=== PATIENT | female | born 1985 | race Caucasian/White ===

== ENCOUNTER 2017-02-14 18:52 | Emergency (ER) | payer SELFPAY ==
[2009-12-08 11:20] VITALS: BMI 26.5
[2017-02-14 20:03] LABS: BASOPHILS 0.3 % (0-2); EOSINOPHILS 1.3 % (0-7); HEMATOCRIT 39.1 % (36.0-48.0); HEMOGLOBIN 13.1 g/dL (12-16); IMMATURE GRANULOCYTES 0.3 % (0-5); LYMPHOCYTES 22.9 % (15-50); MCH 30.9 pg (26.0-34.0); MCHC 33.5 g/dL (31.0-37.0); MCV 92.2 fL (80.0-100.0); MEAN PLATELET VOLUME 9.9 fL (7.4-10.4); MONOCYTES 7.4 % (2-11); NEUTROPHILS 67.8 % (40-80); PLATELET COUNT 276 10x3/uL (130-400); RBC 4.24 10x6/uL (4.00-5.40); WBC 15.1 10x3/uL (4.8-10.8)
[2017-02-14 20:13] LABS: APPEARANCE CLOUDY (CLEAR); BILIRUBIN NEGATIVE (NEGATIVE); COLOR YELLOW (YELLOW); GLUCOSE NEGATIVE (NEGATIVE); KETONE NEGATIVE (NEGATIVE); LEUKOCYTE ESTERASE 1+ (NEGATIVE); NITRITE NEGATIVE (NEGATIVE); PROTEIN NEGATIVE (NEGATIVE); SPECIFIC GRAVITY 1.025 (1.005-1.020); UROBILINOGEN NORMAL (NORMAL)
[2017-02-14 20:16] LABS: BACTERIA FEW /hpf (NONE SEEN); RED CELLS - URINE 0-5 /hpf (0-5); WHITE CELLS - URINE 0-5 /hpf (0-5)
[2017-02-14 20:58] LABS: ALBUMIN 3.8 g/dL (3.4-5.0); ALKALINE PHOSPHATASE 73 U/L (46-116); ALT (SGPT) 13 U/L (10-68); BILIRUBIN - TOTAL 0.18 mg/dL (0.2-1.3); CALC OSMOLALITY 277 mosm/kg (275-300); CHLORIDE - SERUM 105 mmol/L (98-107); CREATININE - SERUM 0.7 mg/dL (0.6-1.3); GLUCOSE 92 mg/dL (74-106); POTASSIUM - SERUM 3.5 mmol/L (3.5-5.1); SODIUM 140 mmol/L (136-145); UREA NITROGEN 11 mg/dL (7-18); eGFR NON AFRICAN AMERICAN > 90 mL/min (90-120)
[2017-02-14 21:22] LABS: HCG SERUM POSITIVE (NEGATIVE)
== END 2017-02-14 22:06 | disposition home or self-care (01) ==
LOC: D.ER 18:52
PROVIDERS: Emergency Medicine
DX: M54.5 Low back pain (principal); F17.200 Nicotine dependence, unspecified, uncomplicated

== ENCOUNTER 2017-05-29 12:21 | Emergency (ER) | payer MEDICAID ==
[2009-12-08 11:20] VITALS: BMI 26.5
[2017-05-29 14:50] LABS: APPEARANCE CLEAR (CLEAR); BILIRUBIN NEGATIVE (NEGATIVE); COLOR YELLOW (YELLOW); GLUCOSE NEGATIVE (NEGATIVE); KETONE NEGATIVE (NEGATIVE); NITRITE NEGATIVE (NEGATIVE); PROTEIN NEGATIVE (NEGATIVE); SPECIFIC GRAVITY 1.015 (1.005-1.020); UROBILINOGEN NORMAL (NORMAL)
[2017-05-29 14:59] LABS: BASOPHILS 0.2 % (0-2); EOSINOPHILS 1.1 % (0-7); HEMATOCRIT 35.9 % (36.0-48.0); HEMOGLOBIN 12.1 g/dL (12-16); IMMATURE GRANULOCYTES 0.4 % (0-5); LYMPHOCYTES 17.2 % (15-50); MCH 30.9 pg (26.0-34.0); MCHC 33.7 g/dL (31.0-37.0); MCV 91.6 fL (80.0-100.0); MONOCYTES 6.6 % (2-11); NEUTROPHILS 74.5 % (40-80); PLATELET COUNT 237 10x3/uL (130-400); RBC 3.92 10x6/uL (4.00-5.40); RDW 12.8 % (11.5-14.5); WBC 12.3 10x3/uL (4.8-10.8)
[2017-05-29 15:03] LABS: HCG SERUM POSITIVE (NEGATIVE)
[2017-05-29 15:13] LABS: ALBUMIN 3.1 g/dL (3.4-5.0); ALKALINE PHOSPHATASE 67 U/L (46-116); ALT (SGPT) 13 U/L (10-68); BILIRUBIN - TOTAL 0.12 mg/dL (0.2-1.3); CALC OSMOLALITY 268 mosm/kg (275-300); CALCIUM 8.8 mg/dL (8.5-10.1); CARBON DIOXIDE 27.2 mmol/L (21.0-32.0); CHLORIDE - SERUM 102 mmol/L (98-107); CREATININE - SERUM 0.3 mg/dL (0.6-1.3); GLUCOSE 99 mg/dL (74-106); POTASSIUM - SERUM 3.5 mmol/L (3.5-5.1); PROTEIN - SERUM 7.1 g/dL (6.4-8.2); SODIUM 136 mmol/L (136-145); UREA NITROGEN 5 mg/dL (7-18); eGFR NON AFRICAN AMERICAN > 90 mL/min (90-120)
[2017-05-29 15:38] LABS: AMYLASE - SERUM 35 U/L (25-115); HCG - QUANTITATIVE (MATERNAL) 10737 mIU/mL; LIPASE 124 U/L (73-393)
[2017-08-09] MEDS ORDERED: PRENATAL COMPLE1 TAB PO (22:33)
[2017-08-09] MEDS ORDERED: ACETAMINOPHEN500 M1 (22:35)
== END 2017-05-29 16:32 | disposition home or self-care (01) ==
LOC: D.ER 12:21
PROVIDERS: Family Medicine
DX: O26.892 Other specified pregnancy related conditions, second trimester (principal); Z3A.18 18 weeks gestation of pregnancy; R10.12 Left upper quadrant pain; F17.200 Nicotine dependence, unspecified, uncomplicated

== ENCOUNTER → 2017-08-06 06:59 | Outpatient (CLI) | payer MEDICAID ==
[2009-12-08 11:20] VITALS: BMI 26.5
[~2017-08-06 06:59] MED LIST: ACETAMINOPHEN500 M1; PRENATAL COMPLE1 TAB PO
[2017-08-06 08:05] LABS: AMORPHOUS SEDIMENT <1+ /lpf (NONE SEEN); APPEARANCE CLOUDY (CLEAR); BACTERIA MANY /hpf (NONE SEEN); BILIRUBIN NEGATIVE (NEGATIVE); COLOR YELLOW (YELLOW); GLUCOSE NEGATIVE (NEGATIVE); GRANULAR CAST OCC /lpf (NONE SEEN); KETONE NEGATIVE (NEGATIVE); MUCUS <1+ /lpf (NONE SEEN); NITRITE NEGATIVE (NEGATIVE); PROTEIN NEGATIVE (NEGATIVE); RED CELLS - URINE OCC /hpf (0-5); UROBILINOGEN NORMAL (NORMAL)
[2017-08-14 05:15] VITALS: BMI 33.7
== END | disposition home or self-care (01) ==
LOC: D.LDO 06:59
PROVIDERS: Obstetrics & Gynecology
DX: O36.8190 Decreased fetal movements, unspecified trimester, not applicable or unspecified (principal); Z3A.00 Weeks of gestation of pregnancy not specified

== ENCOUNTER → 2017-08-09 07:53 | Outpatient (CLI) | payer MEDICAID ==
[2009-12-08 11:20] VITALS: BMI 26.5
[2017-08-09 08:28] LABS: APPEARANCE HAZY (CLEAR); BACTERIA MODERATE /hpf (NONE SEEN); BILIRUBIN NEGATIVE (NEGATIVE); COLOR YELLOW (YELLOW); GLUCOSE NEGATIVE (NEGATIVE); KETONE MODERATE mg/dL (NEGATIVE); MUCUS <1+ /lpf (NONE SEEN); NITRITE NEGATIVE (NEGATIVE); PROTEIN NEGATIVE (NEGATIVE); RED CELLS - URINE 0-5 /hpf (0-5); UROBILINOGEN NORMAL (NORMAL)
[2017-08-14 05:15] VITALS: BMI 33.7
== END | disposition home or self-care (01) ==
LOC: D.LDO 07:53
PROVIDERS: Obstetrics & Gynecology
DX: Z34.82 Encounter for supervision of other normal pregnancy, second trimester (principal); Z3A.28 28 weeks gestation of pregnancy; R10.9 Unspecified abdominal pain

== ENCOUNTER → 2017-08-09 21:05 | Outpatient (CLI) | payer MEDICAID ==
[2009-12-08 11:20] VITALS: BMI 26.5
[2017-08-14 05:15] VITALS: BMI 33.7
== END | disposition home or self-care (01) ==
LOC: D.LDO 21:05
DX: O46.93 Antepartum hemorrhage, unspecified, third trimester (principal); Z3A.38 38 weeks gestation of pregnancy

== ENCOUNTER 2017-08-13 22:03 | Inpatient (IN) | payer MEDICAID ==
[~2017-08-13] VITALS: Ht 175.3 cm; Wt 103.4 kg
--- NOTE | ~2017-08-13 | DS ---
PATIENT:DANIE MEAD :87 MEDICAL RECORD: [id number] DISCHARGE SUMMARY ADMISSION DATE: 08/14/17 DISCHARGE DATE: 08/14/17 DATE OF ADMISSION: 08/14/2017 DATE OF DISCHARGE: 08/14/2017 ADMISSION DIAGNOSIS: labor at 29 weeks and 1 day. DISCHARGE DIAGNOSIS: labor at 29 weeks and 1 day. DISPOSITION: Transfer care to [facility]. HISTORY OF PRESENT ILLNESS: See the H&P in the chart. SUMMARY OF CARE: The patient was admitted after having rapidly changed from what was reported to be closed and out of pelvis cervix to 9 cm with bulging bag of lebron into the vagina. The patient was ruptured after transport notified. The patient was given magnesium sulfate for neuro protection. After rupture of bag of lebron, the cervix reduced in diameter to dilation to 7 cm. The patient has had no further change at 7 cm. The patient is receiving ampicillin as well as betamethasone. Transport will be arranged and care has been accepted at [facility]. TRANSINT:[id number] Voice Confirmation ID: [id number] DOCUMENT ID: [id number] LINDSAY ORTIZ MD at 0659 CC: [id number] DICTATION DATE: 08/14/17 0225 UPHOLSTERY COVERS INSPECTOR: 08/14/17 1318 DIS IN 08/14/17 [id number] [place] [address]
[2017-08-13 22:19] LABS: APPEARANCE HAZY (CLEAR); BILIRUBIN NEGATIVE (NEGATIVE); COLOR YELLOW (YELLOW); GLUCOSE NEGATIVE (NEGATIVE); KETONE NEGATIVE (NEGATIVE); NITRITE NEGATIVE (NEGATIVE); PROTEIN NEGATIVE (NEGATIVE); UROBILINOGEN NORMAL (NORMAL)
[2017-08-13 22:22] LABS: BACTERIA FEW /hpf (NONE SEEN); RED CELLS - URINE >50 /hpf (0-5)
[2017-08-14 00:26] LABS: HEMATOCRIT 32.2 % (36.0-48.0); HEMOGLOBIN 10.9 g/dL (12-16); MCH 29.6 pg (26.0-34.0); MCHC 33.9 g/dL (31.0-37.0); MCV 87.5 fL (80.0-100.0); MEAN PLATELET VOLUME 9.8 fL (7.4-10.4); RBC 3.68 10x6/uL (4.00-5.40); RDW 12.7 % (11.5-14.5); WBC 16.7 10x3/uL (4.8-10.8)
[2017-08-14] MEDS ORDERED: PRENATAL COMPLE1 TAB PO (05:14)
[2017-08-14 05:15] VITALS: BP 126/60; Ht 175.3 cm; Wt 103.4 kg
[2017-08-15 07:22] LABS: RAPID PLASMA REAGIN Non Reactive (Non Reactive)
== END 2017-08-14 03:10 | disposition short-term general hospital (02) | DRG 778 ==
LOC: D.LDO 22:03 → D.LD 22:52 → D.LDO 08-14 00:13 → D.LD 08-14 00:13
PROVIDERS: Obstetrics & Gynecology
PROC: 10907ZC Drainage of Amniotic Fluid, Therapeutic from Products of Conception, Via Natural or Artificial Opening (ICD-10-PCS; principal; 2017-08-14)
DX: O60.03 Preterm labor without delivery, third trimester (principal); Z3A.29 29 weeks gestation of pregnancy; O99.213 Obesity complicating pregnancy, third trimester